=== PATIENT | female | born 1960 | race Caucasian/White ===

== ENCOUNTER → 2016-07-10 | Outpatient (CLI) | payer OTHER ==
[~2016-07-10] MED LIST: ADVIL200 M2; ALEVE220 M1; FLEXERIL10 M1 PO; HYDROCODON-ACE1 EAC7 PO; IBUPROFEN800 MG PO; LORTAB 5/500 TA1 TA1 PO; PRAVASTATIN PO; PREDNISONE PO; TYLENOL #3 PO; VITAMIN D PO
--- NOTE | ~2016-07-10 | MY11 ---
[facility] A Service of [facility] RADIOLOGY TEXT RESULTS PATIENT: GAIL KEITA LOCATION: [facility] : 60 UNIT #: [id number] AGE: [address]: NICOLE WEINSTEIN APRN SEX: F ORDER DR: [id number] [facility] [address] [place], [place] [address] [id number] O MR#: [id number] Acc #: [id number] NAME: GAIL KEITA : 1960 SEX: F STUDY DATE/TIME: 07/10/2016 10:00 UNIT: [facility] ROOM: STUDY DESCRIPTION: MY Mammogram Screening Dig Alfonso Attending Physician: Nicole Weinstein Aprn Ordering Physician: Nicole Weinstein Aprn Primary Care Physician: Nicole Weinstein Aprn MEDICAL IMAGING REPORT This report is preliminary unless electronic signature is present EXAM Screening mammogram 07/10 INDICATIONS 56-year-old with no personal history but a positive family of breast cancer in mother. No current complaints. FINDINGS Routine digital screening views of both breasts were obtained. Study reviewed with an FDA-approved CAD device. Breast parenchyma shows scattered fibroglandular densities. No new masses or suspicious microcalcifications are seen. Asymmetrically prominent tissue in the lower inner right breast is stable. IMPRESSION Benign mammogram. Routine screen 1 year is recommended. Patients over the age of 40 are entered into a reminder system with target due date for the next mammogram. A result letter will also be sent to the patient. BIRADS: 2 Benign finding. Dictated by... Anand Ortiz Jr., M.D. THIS IS AN ELECTRONICALLY VERIFIED REPORT Anand Ortiz Jr., M.D. at 07/10/2016 5:05 PM YANIV/vivek TD: 07/10/2016 11:47 JOB #: [id number] [facility] A Service of [facility] RADIOLOGY TEXT RESULTS PATIENT: GAIL KEITA LOCATION: [facility] : 60 UNIT #: [id number] AGE: [address]: NICOLE WEINSTEIN APRN SEX: F ORDER DR: MEDICAL IMAGING REPORT Page 1 of 1 COPY
== END | disposition home or self-care (01) ==
LOC: CWCC 09:37
DX: Z12.31 Encounter for screening mammogram for malignant neoplasm of breast (principal); Z80.3 Family history of malignant neoplasm of breast
CPT/HCPCS: G0202

== ENCOUNTER 2016-08-14 08:39 | Emergency (ER) | payer OTHER ==
--- NOTE | ~2016-08-14 | CR127 ---
[facility] A Service of [facility] RADIOLOGY TEXT RESULTS PATIENT: GAIL KEITA LOCATION: SED : 60 UNIT #: [id number] AGE: [address]: aDljit Garcia MD SEX: F ORDER DR: [id number] [place] [id number] E MR#: [id number] Acc #: [id number] NAME: GAIL KEITA : 1960 SEX: F STUDY DATE/TIME: 08/14/2016 09:12 UNIT: SED ROOM: STUDY DESCRIPTION: CR Foot Complete Min 3 View Rt Attending Physician: Daljit Garcia M.D. Ordering Physician: Daljit Garcia M.D. Primary Care Physician: Nicole Nilesen Aprn MEDICAL IMAGING REPORT This report is preliminary unless electronic signature is present. EXAM Right foot 3 views 08/14/2016 0912 hours HISTORY Foot pain for 3 days. Posterior heel pain and pain with foot flexion. Unable to bear weight. No known injury. FINDINGS AP, lateral and oblique views of the right foot demonstrate normal bone density. There is no fracture or dislocation. There is degenerative change at the first metatarsal-phalangeal joint. There is a small plantar calcaneal spur. IMPRESSION No fracture, dislocation or periosteal reaction. Mild degenerative change at the first MTP joint. A small to moderate plantar calcaneal spur is present. Dictated by... Mary Kay Vega M.D. THIS IS AN ELECTRONICALLY VERIFIED REPORT Mary Kay Vega M.D. at 08/14/2016 7:31 PM VICK/vivek TD: 08/14/2016 11:43 JOB #: [id number] MEDICAL IMAGING REPORT Page 1 of 1
--- NOTE | ~2016-08-14 | CR21 ---
[facility] A Service of [facility] RADIOLOGY TEXT RESULTS PATIENT: GAIL KEITA [place] [facility] 60 [place]IT #: [id number] AGE: [address]: Daljit Garcia MD SEX: F ORDER DR: [id number] [address] [address] [id number] E MR#: [id number] Acc #: [id number] NAME: GAIL KEITA : 1960 SEX: F STUDY DATE/TIME: 08/14/2016 0912 UNIT: SED ROOM: STUDY DESCRIPTION: CR Ankle Min 3 Views Rt Attending Physician: Daljit Garcia M.D. Ordering Physician: Daljit Garcia M.D. Primary Care Physician: Nicole Nielsen Aprn MEDICAL IMAGING REPORT This report is preliminary unless electronic signature is present. EXAM Right ankle, 3 views, 08/14/2016, 0912 hours. CLINICAL HISTORY Foot and ankle pain. Lower leg pain for 3 days. Pain with weightbearing. No known injury. COMPARISON None FINDINGS AP, lateral, and oblique views demonstrate small ossicles adjacent to the medial malleolus, likely chronic. There is no fracture or dislocation. There is trace spurring at the anterior tibia at the tibiotalar articulation. There is spurring at the calcaneus at the Achilles insertion and the plantar surface. IMPRESSION No fracture. Small ossicle seen at the medial malleolus appear well corticated and chronic. There is spurring at the Achilles insertion on the calcaneus and at the plantar surface of the calcaneus. Dictated by... Mary Kay Vega M.D. THIS IS AN ELECTRONICALLY VERIFIED REPORT Mary Kay Vega M.D. at 08/14/2016 7:31 PM VICK/diana TD: 08/14/2016 11:47 [facility] A Service of [facility] RADIOLOGY TEXT RESULTS PATIENT: GAIL KEITA LOCATION: SED : 60 UNIT #: [id number] AGE: [address]: Daljit Garcia MD SEX: F ORDER DR: JOB #: [id number] MEDICAL IMAGING REPORT Page 1 of 1
[~2016-08-14 08:39] MED LIST changes: -TYLENOL #3 PO
[2016-08-14] MEDS ORDERED: TYLENOL #3 PO (08:45)
== END 2016-08-14 10:30 | disposition home or self-care (01) ==
LOC: SED 08:39
DX: M76.61 Achilles tendinitis, right leg (principal); F17.200 Nicotine dependence, unspecified, uncomplicated; K50.90 Crohn's disease, unspecified, without complications
CPT/HCPCS: 73610; 73630; 99283